=== PATIENT | male | born 1975 | race Two or more races ===

== ENCOUNTER 2017-02-21 19:29 | Emergency (ER) | payer OTHER ==
[2017-02-21 19:55] VITALS: BP 135/79
[2017-02-21] MEDS ORDERED: Aspirin Low Dose CHEW TAB* 81 MG PO ONE (20:28)
[2017-02-21] MEDS ORDERED: Aspirin Low Dose CHEW TAB* 81 MG ONE (20:30)
--- NOTE | 2017-02-21 20:34 | UC ---
Cardiac HPI - HPI Summary HPI Summary: ABOUT A WEEK OF INTERMITTENT MID STERNAL DULL CP, DIZZINESS AND LEFT ARM PAIN. HAS SOME ASSOCIATED SOB. HAS NOT BEEN SLEEPING ENOUGH OVER THE PAST WEEK OR SO DUE TO LONG HOURS AT WORK ([employer]IC) AND DRINKS A LOT OF CAFFEINE. STATES HE MADE SURE TO GET A FULL NIGHTS SLEEP PAST 2 NIGHTS BUT PAIN IS PERSISTENT. HE IS ALSO HAVING INTERMITTENT PALPITATIONS BUT THESE SEEM TO BE RELATED TO NASAL OXYMETAZOLONE USE. PT HAS BEEN USING THIS NASAL SPRAY FOR OVER A YEAR. - History of Current Complaint Chief Complaint: UCChestPain Stated Complaint: CHEST PAIN Time Seen by Provider: 02/21/17 19:54 Hx Obtained From: Patient Onset/Duration: Sudden Onset, Lasting Days Timing: Intermittent Episodes Lasting: Initial Severity: Moderate Current Severity: Moderate Pain Intensity: 7 Chest Pain Location: Mid Sternal Character: Dull/Aching Aggravating Factor(s): Nothing Alleviating Factor(s): Spontaneous Resolution Associated Signs & Symptoms: Positive: Chest Pain, Dizziness, SOB, Palpitations. Negative: Fever, Diaphoresis, Nausea/Vomiting, Cough - Allergy/Home Medications Allergies/Adverse Reactions: Allergies Allergy/AdvReac Type Severity Reaction Status Date / Time No Known Allergies Allergy Verified 02/21/17 19:55 PMH/Surg Hx/FS Hx/Imm Hx Previously Healthy: Yes - Surgical History Surgical History: Yes Surgery Procedure, Year, and Place: ear drum repair 2015 - Family History Known Family History: Negative: Cardiac Disease, Hypertension, Diabetes - Social History Alcohol Use: Occasionally Substance Use Type: None Smoking Status (MU): Former Smoker Amount Used/How Often: 1 cig/ day When Did the Patient Quit Smoking/Using Tobacco: states 2 weeks ago Review of Systems Constitutional: Negative Skin: Negative Respiratory: Shortness Of Breath Cardiovascular: Palpitations, Chest Pain Gastrointestinal: Negative All Other Systems Reviewed And Are Negative: Yes Physical Exam Triage Information Reviewed: Yes Appearance: Well-Appearing, No Pain Distress, Well-Nourished Vital Signs: Initial Vital Signs Temp 99.3 F 02/21/17 19:47 Pulse 91 02/21/17 19:47 Resp 24 02/21/17 19:47 BP 135/79 02/21/17 19:47 Pulse Ox 100 02/21/17 19:47 Vital Signs Reviewed: Yes Eyes: Positive: Conjunctiva Clear ENT: Positive: Hearing grossly normal Neck: Positive: Supple Respiratory Exam: Normal Cardiovascular Exam: Normal Abdomen Description: Positive: Soft Musculoskeletal: Positive: No Edema Neurological: Positive: Alert Psychological: Positive: Normal Response To Family, Age Appropriate Behavior Skin: Negative: rashes Diagnostics - EKG Cardiac Rate: NL - 91 BPM Cardiac Rhythm: Sinus: Normal Ectopy: None - Clinical Impression Provider Diagnoses: CHEST PAIN - Physician Notifications Discussed Patient Care With: Jose Alberto Soliman - TO [facility]BULANCE Time Discussed With Above Provider: 20:29 Instructed by Provider To: MD Will See In ED Discharge - Discharge Plan Condition: Stable Disposition: TRANS HIGHER LVL OF CARE FAC Referrals: No Primary Care Phys,NOPCP [Primary Care Provider] -
== END 2017-02-21 20:00 | disposition short-term general hospital (02) ==
LOC: UCEAST 19:29
DX: R07.9 Chest pain, unspecified (principal); Z87.891 Personal history of nicotine dependence
CPT/HCPCS: 93005; 99203; A9270-GY; G0463

== ENCOUNTER 2017-02-21 21:07 | Observation (INO) | payer OTHER ==
[2017-02-21] MEDS ORDERED: Aspirin Low Dose CHEW TAB* 81 MG PO ONE (21:44)
[2017-02-21 22:01] LABS: Hematocrit 41 % (42-52); Hemoglobin 14.3 g/dl (14.0-18.0); Mean Corpuscular HGB Conc 35 g/dl (31-36); Mean Corpuscular Hemoglobin 34 pg (27-31); Mean Corpuscular Volume 96 fL (80-94); Mean Platelet Volume 7 um3 (7.4-10.4); Red Blood Count 4.26 10^6/ul (4.0-5.4); Red Cell Distribution Width 13 % (10.5-15); White Blood Count 7.8 10^3/ul (3.5-10.8)
[2017-02-21 22:18] LABS: Albumin 4.6 g/dL (3.2-5.2); Calcium 9.4 mg/dL (8.6-10.3); EGFR African American 117.8 (>60); EGFR Non-African American 91.6 (>60); Globulin 2.8 g/dL (2-4); Magnesium 2.1 mg/dL (1.9-2.7); Potassium 3.9 mmol/L (3.5-5.0); Total Bilirubin 0.8 mg/dL (0.2-1.0); Total Protein 7.4 g/dL (6.4-8.9)
[2017-02-21 22:43] LABS: TSH (Thyroid Stimulating Horm) 3.35 mcIU/mL (0.34-5.60)
--- NOTE | 2017-02-22 | ED ---
Radha Rich Rebecca, scribed for Jose Alberto Soliman on 02/21/17 at 2143 . HPI Chest Pain - HPI Summary HPI Summary: Pt is a 41 y/o M BIBA from [facility] who presents to ED c/o CP. Pain has been intermittent for the last 10 days, present tonight from 1914 to 1929 and resolved spontaneously. When present, pain is midsternal with radiation to the LUE and characterized a pressure/burning, though now it is 0/10. Was given ASA at [facility]. Sx aggravated by nothing, alleviated by spontaneous resolution, unchanged by exertion. Additionally c/o SOB, palpitations and intermittent dizziness. Palpitations characterized as fast. Denies N/V. Has never had a stress test. Report she has not been sleeping more than 3 nights for the past few weeks besides the last 2 nights when he got about 7 hours. Has never had a stress test. - History of Current Complaint Chief Complaint: EDDysrhythmPalp Time Seen by Provider: 02/21/17 21:27 Hx Obtained From: Patient Onset/Duration: Started Days Ago - 10 days, Resolved, Worse Since - 1914 tonight Time of Onset: 19:15 Timing: Intermittent Current Severity: None Pain Intensity: 0 Pain Scale Used: 0-10 Numeric Chest Pain Location: Mid Sternal Chest Pain Radiates: Yes Chest Pain Radiates To:: Arm - LUE Character: Burning, Pressure/Squeezing Aggravating Factor(s): Nothing Alleviating Factor(s): Spontaneous Resolution Associated Signs and Symptoms: Positive: Dizziness, Shortness of Breath, Palpitations. Negative: Nausea, Vomiting - Allergy/Home Medications Allergies/Adverse Reactions: Allergies Allergy/AdvReac Type Severity Reaction Status Date / Time No Known Allergies Allergy Verified 02/21/17 19:55 Home Medications: Home Medications Fluticasone NASAL * [Flonase *] 1 spray NASAL DAILY 02/21/17 [History Confirmed 02/21/17] PMH/Surg Hx/FS Hx/Imm Hx Endocrine/Hematology History: Denies: Hx Diabetes Cardiovascular History: Denies: Hx Hypertension EENT History: Reports: Other - Hx chronic sinusitis, deviated septum - Surgical History Surgery Procedure, Year, and Place: ear drum repair 2016 Infectious Disease History: No Infectious Disease History: Reports: Traveled Outside the [place] in [place] - Family History Known Family History: Negative: Cardiac Disease, Hypertension, Diabetes - Social History Occupation: Employed Full-time - [place] Lives: With Family Alcohol Use: Occasionally Substance Use Type: Reports: None Smoking Status (MU): Former Smoker Amount Used/How Often: 1 cig/ day Review of Systems Positive: Palpitations, Chest Pain - resolved Positive: Shortness Of Breath Negative: Vomiting, Nausea Neurological: Other - Dizziness All Other Systems Reviewed And Are Negative: Yes Physical Exam - Summary Physical Exam Summary: Appearance: Well appearing, no pain distress Skin: warm, dry, reflects adequate perfusion Head/face: normal Eyes: EOMI, KAREN ENT: normal Neck: supple, nontender Respiratory: CTA, breath sounds present Cardiovascular: RRR, pulses symmetrical Abdomen: nontender, soft Bowel: present Musculoskeletal: normal, strength/ROM intact Neuro: normal, sensory motor intact, A&Ox3 Triage Information Reviewed: Yes Vital Signs On Initial Exam: Initial Vitals Temp Pulse Resp BP Pulse Ox 97.9 F 81 19 127/82 100 02/21/17 21:20 02/21/17 21:20 02/21/17 21:20 02/21/17 21:20 02/21/17 21:20 Vital Signs Reviewed: Yes Diagnostics - Vital Signs Vital Signs Temp Pulse Resp BP Pulse Ox 02/21/17 21:20 97.9 F 81 19 127/82 100 - Laboratory Result Diagrams: 02/21/17 21:54 02/21/17 21:54 Lab Statement: Any lab studies that have been ordered have been reviewed, and results considered in the medical decision making process. - Radiology CXR Xray Interpretation: No Acute Changes Radiology Interpretation Completed By: ED Physician - EKG 2143 Cardiac Rate: NL EKG Rhythm: Sinus Rhythm EKG Interpretation: Early repolarization Re-Evaluation - Re-Evaluation First Eval Re-Evaluation Time: 23:07 Comment: Discussing results. Chest Pain Course/Dx - Course Assessment/Plan: Pt is a 41 y/o M BIBA from [facility] who presents to ED c/o CP. Pain has been intermittent for the last 10 days, present tonight from 1915 to 1930 and resolved spontaneously. When present, pain is midsternal with radiation to the LUE and characterized a pressure/burning, though now it is 0/ 10. Was given ASA at [facility]. Sx aggravated by nothing, alleviated by spontaneous resolution, unchanged by exertion. Additionally c/o SOB, palpitations and intermittent dizziness. Palpitations characterized as fast. Denies N/V. Has never had a stress test. Report she has not been sleeping more than 3 nights for the past few weeks besides the last 2 nights when he got about 7 hours. Has never had a stress test. CXR reveals no acute changes. EKG is sinus rhythm with early repolarization. Troponin of 0.00. In the ED course, he received ASA. Discussed care of pt with Dr. Vallejo who accepts pt for admission. Pt will be admitted with Dx of chest pain, r/o KS. He understands and agrees. Patient medications reviewed this visit. Elevated BP noted and advised to f/u. - Diagnoses Provider Diagnoses: Chest pain, rule out acute myocardial infarction - Provider Notifications Discussed Care Of Patient With: Khloe Vallejo Time Discussed With Above Provider: 23:23 Instructed by Provider To: Admit As Observation Discharge - Discharge Plan Condition: Stable Disposition: ADMITTED TO [facility] Referrals: No Primary Care Phys,NOPCP [Primary Care Provider] - The documentation as recorded by the Radha winkler Rebecca accurately reflects the service I personally performed and the decisions made by , Jose Alberto Soliman.
[2017-02-22] MEDS ORDERED: Temazepam CAP* 15 MG PO PRN (00:27)
[2017-02-22 00:57] LABS: Benzodiazepine Urine Screen None Detected (None Detect)
--- NOTE | 2017-02-22 04:12 | HP ---
HISTORY AND PHYSICAL: DATE OF ADMISSION: 02/22/17 PRIMARY CARE PROVIDER: None. CHIEF COMPLAINT: Chest pain. HISTORY OF PRESENT ILLNESS: Mr. Melgar is a 41-year-old male with a history significant for recent problems with deviated nasal septum who presents to the hospital complaining of chest pain. 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 He had been working up to 20 hours a day. He stated that he would be working for about 13 hours and then he would come home, have dinner and go back and work again until 3 a.m. every day. In addition to that, he had problems with sleeping due to his deviated septum and breathing when he sleeps. He stated that for the past 10 days, he had approximately 5 episodes of chest pain. They were all noted to be in the left upper precordial area associated with shortness of breath and feeling like a "panic attack." During those episodes, the patient has to come outside and takes several deep breaths and the pain would go away. He describes the pain as pressure radiating to the left axillary once again associated with shortness of breath and feeling of panic attack. The pain was not pleuritic. Today, the pain lasted 15 minutes and it resolved spontaneously. It occurred when the patient was working in front of a computer at all times. The patient also stopped smoking approximately 2 weeks ago. His workup is currently negative with unremarkable EKG and negative troponin. Dr. Soliman of the ER asked me to place the patient on observation to rule out angina. PAST MEDICAL HISTORY: 1. History of deviated septum. 2. History of tympanostomy on the left a year ago. MEDICATIONS: Flonase nasal spray on a p.r.n. basis. ALLERGIES: No known drug allergies. FAMILY HISTORY: No history of heart disease in both parents. 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 He lives with his , who is his surrogate. He denies any alcohol or drug use. He quite smoking 2 weeks ago. REVIEW OF SYSTEMS: Please see history of present illness. Positive for lot of stress, very little sleep and feeling over worked and tired all the time. All the remaining 14 systems were reviewed with the patient and were otherwise negative. PHYSICAL EXAMINATION GENERAL APPEARANCE: The patient is a very pleasant 41-year-old male, who is in no acute distress. Alert, awake and oriented x3. VITAL SIGNS: Blood pressure of 118/72, heart rate of 18 and regular, respiratory rate 16, oxygen saturation 99% on room air, temperature of 97.9. HEENT: Head atraumatic, normocephalic. Eyes: Pupils are equal and reactive to light and accommodation. Oropharynx clear. Mucosa moist. NECK: Supple. No JVD, no bruits bilaterally. RESPIRATORY: Clear to auscultation bilaterally. CARDIOVASCULAR: Regular rate and rhythm. No murmur. ABDOMEN: Soft, nontender. Bowel sounds are present in all 4 quadrants. EXTREMITIES: There is no edema. Pulses are +2 bilaterally. No clubbing or cyanosis. NEUROLOGIC: Speech clear. Cranial nerves II through XII grossly intact. Motor strength is 5/5 bilaterally. SKIN: No ecchymotic areas or rashes noted. LABORATORY DATA: Showed white blood cell count of 7.8, hemoglobin of 14.3, hematocrit of 41, platelets of 310. Sodium was 138, potassium 3.9, chloride 102, carbon dioxide 30, BUN 11, creatinine 0.92. Liver function test is unremarkable. Troponin of 0. TSH of 3.35. The patient's EKG shows normal sinus rhythm with a heart rate of 75 beats per minute with elevated J-point to early repolarization in anteroseptal and inferior leads. Portable chest x-ray reviewed by myself prior to the official Radiology report showed no acute cardiopulmonary disease. ASSESSMENT AND PLAN: 1. In regards to the chest pain, it appears to be anxiety related. Nevertheless, the ED physician recommended for the patient to stay overnight and the patient is going to be staying on telemetry monitored bed to rule out arrhythmia and in the morning. The patient already received aspirin in the emergency department. 2. For DVT prophylaxis, the patient is at low risk. 3. In regards to the patient's history of deviated nasal septum and problems with seasonal allergies, the patient is going to be continued on Flonase. TIME SPENT: Approximately 65 minutes were spent on the admission of this patient, more than half of the time spent [id number] with the patient during the interview and physical exam. [id number]/[facility] #: [id number] MTDD
[2017-02-22 07:46] VITALS: BP 115/59
--- NOTE | 2017-02-22 08:51 | RAD ---
Indication: LEFT side chest pain with radiation to the LEFT arm. Shortness of breath. Tobacco cessation 2 weeks ago. Comparison: No relevant prior exams available on the [facility] PACS for comparison. Technique: Upright AP 2151 hours Report: Clear lungs and pleural spaces. Negative for pneumothorax. The heart, pulmonary vasculature, and mediastinal contours are unremarkable. Unremarkable osseous structures and soft tissue contours. IMPRESSION: No evidence for acute intrathoracic disease.
[2017-02-22] MEDS ORDERED: Fluticasone NASAL SPRAY 50MCG* 16 gm SPRAY BTL NASAL SCH (09:00)
--- NOTE | 2017-02-22 11:13 | PN ---
Hospitalist Progress Note . HOSPITALIST DISCHARGE NOTE: See dc instructions and summary by me. Patient stable for dc dc instructions reviewed with the patient at the bedside. DC patient home today.
--- NOTE | 2017-02-22 16:25 | DS ---
CC: Lucie Nelson D.O.; Dr. Barreto* DISCHARGE SUMMARY: DATE OF ADMISSION: 02/22/17 DATE OF DISCHARGE: 02/22/17 PRIMARY CARE PROVIDER: [facility] - Lucie Nelson D.O. REFERRED TO: Dr. Barreto, [facility] audio recording engineer. PRINCIPAL DISCHARGE DIAGNOSIS: Chest pain, most likely secondary to anxiety, possibly related to nasal decongestant. SECONDARY DIAGNOSES: 1. History of deviated septum with chronic rhinorrhea - on ongoing nasal decongestant/nasal steroids. 2. History of tympanostomy for approximately 1 year previous to this admission without complication. DISCHARGE MEDICATIONS REGIMEN: 1. Flonase 50 mcg per spray, 1 spray each naris p.r.n. basis. 2. Avoid OTC nasal decongestants including pseudoephedrine containing products. HISTORY OF PRESENT ILLNESS AND HOSPITAL COURSE: Please see the H and P by Dr. Khloe Vallejo, on the same date of discharge, 02/22/17. In brief, Mr. Melgar is a 41-year-old gentleman with a history of recent positive deviated nasal septum, who now presented to the hospital with chest pain. 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 He states he was working up to 20 hours a day with 13-hour stretches where he would come home and then go back to work until the middle of the night (3 a.m.). He reported difficulty sleeping secondary to his deviated septum and sleep disordered breathing as a result. He stated that over the past 10 days, he had no fewer than 5 episodes of chest pain all in the left upper precordial area associated with shortness of breath and symptoms consistent with a panic attack. The patient would leave his home and take several deep breaths outside and the pain would resolve. The patient's pressure radiated to his left axilla once and was associated with feelings of shortness of breath and panic. He denied pleuritic symptomatology. The patient was admitted for serial troponins. He had unremarkable EKG and serially negative troponins. The patient was chest pain free when I evaluated him on 02/22/17. The patient is accompanied by his and small child. He is willing to go home and have an outpatient stress test and I think that would be safe considering the entire situation. The patient has no family history or early coronary artery disease and does not have many cardiac risk factors. I am going to add on a lipid panel to his blood chemistry and refer the patient back to Dr. Susanne Barreto for an outpatient stress test. The patient pointed out that his most recent episode of chest pain happened only 2 hours following a dose of phenylephrine containing nasal spray. These agents are known to cause in some patients very elevated blood pressures and this could be a hypertension-related episode. The patient would benefit from a stress test, although he does not need to be observed over the weekend until that time. The patient was given return to ED instructions including for any worsening symptoms, but in particular for chest pain, shortness of breath, lightheadedness , or any other worsening symptoms. Thankfully, his adalberto is now submitted and he can resume a more normal lifestyle and that was encouraged including walking outside and spending time with his family after discharge. TIME SPENT: Total time taken to discharge Mr. Melgar was 45 minutes, greater than half that time spent educating the patient about coronary disease at the bedside and arranging follow up with cardiology team for a stress test. The patient was told to follow up with Dr. Nelson or an Associate at [facility] to maintain continuity of care as he does seek care at [facility] when needed. [id number]/[facility] #: [id number] JUSTIN
== END 2017-02-22 12:00 | disposition home or self-care (01) ==
LOC: ED 21:07 → MEDTELE 02-22 00:26
PROVIDERS: ADMIT Internal Medicine; ATTEND Internal Medicine
DX: R07.9 Chest pain, unspecified (principal); R42 Dizziness and giddiness; R06.02 Shortness of breath; F41.9 Anxiety disorder, unspecified; Z87.891 Personal history of nicotine dependence
CPT/HCPCS: 36415; 71010; 80053; 80307; 83735; 83880; 84443; 84484; 85025; 85610; 85730; 93005; 99284; A9270-GY; G0378

== ENCOUNTER 2017-04-16 08:56 | Day surgery (SDC) | payer OTHER ==
[~2017-04-16 08:56] MED LIST: Buffered Lidocaine 0.9% SYRIN* 5 ML/SYR SYRINGE INTRADERM ONE; Famotidine IV* 10 MG/ML 2 ML (20 mg) IV ONE; Metoclopramide TAB* 10 MG PO ONE
[2017-04-16] MEDS ORDERED: Famotidine IV* 10 MG/ML 2 ML (20 mg) ONE (09:10)
[2017-04-16] MEDS ORDERED: Metoclopramide TAB* 10 MG ONE (09:11)
[2017-04-16] MEDS ORDERED: Buffered Lidocaine 0.9% SYRIN* 5 ML/SYR SYRINGE ONE (09:11)
[2017-04-16] MEDS ORDERED: Propofol* 10 MG/ML 20 ML BTL IV PUSH ONE (11:43)
[2017-04-16] MEDS ORDERED: Dexamethasone IV* 4 MG/ML 1 ML (4 MG) ONE (11:43)
[2017-04-16] MEDS ORDERED: Ondansetron INJ* 2 MG/ML VIAL ONE (11:43)
[2017-04-16] MEDS ORDERED: Lidocaine 2% PF * 5 ML VIAL ONE (11:43)
[2017-04-16] MEDS ORDERED: Midazolam* 1 MG/ML 5 ML VIAL (5 MG) ONE (11:44)
[2017-04-16] MEDS ORDERED: fentaNYL* 50 MCG/ML 2 ML VIAL (100 MCG VIAL) ONE (11:44)
[2017-04-16] MEDS ORDERED: Oxymetazoline 0.05% NASAL SPR* 15 ML BTL ONE (12:06)
[2017-04-16] MEDS ORDERED: Lidocaine 2% EPI 1:200000 MPF* 20 ML VIAL ONE (12:07)
[2017-04-16] MEDS ORDERED: fentaNYL* 50 MCG/ML 2 ML VIAL (100 MCG VIAL) IV PRN (12:48)
[2017-04-16] MEDS ORDERED: Ondansetron INJ* 2 MG/ML VIAL IV PRN (12:48)
[2017-04-16 14:37] VITALS: BP 149/89
--- NOTE | 2017-04-17 05:05 | OP ---
DATE OF OPERATION: 04/16/17 - [facility] DATE OF : 79 SURGEON: Derrell Sabillon MD ANESTHESIOLOGIST: Paul Porter MD ANESTHESIA: General PRE-OP DIAGNOSES: Deviated nasal septum, hypertrophied nasal turbinates, and nasal dyspnea. POST-OP DIAGNOSES: Deviated nasal septum, hypertrophied nasal turbinates, and nasal dyspnea. OPERATIVE PROCEDURE: Septoplasty and submucosal resection of inferior turbinates. 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 We had tried getting him off the oxymetazoline with nasal steroids, but identified him to have a deviated nasal septum with hypertrophied turbinates, which may be improved with surgical management. DESCRIPTION OF PROCEDURE: The patient was taken to the operating room, general anesthesia was given, the patient was intubated with LMA. Nose was decongested with Afrin placed pledgets. Subsequently 2% lidocaine with epinephrine was infiltrated into the mucosa on both sides. A right hemitransfixion incision was created. Mucoperichondrial flap was elevated. Quadrangular cartilage was then disarticulated along the vomer-ethmoidal complex posteriorly along the maxillary crest inferiorly. The portion of the crest was removed along the cartilage to swing. A portion of the cartilage in the inferior portion was removed, upmost the quadrangular cartilage was persevered. Cartilage was then secured in the midline with multiple mattress sutures. Lulú splints were then applied which were used to stabilize the quadrangular cartilage in the midline. We turned our attention to the inferior turbinates. Small incision was made in the inferior turbinate mucosa. Submucosal elevation was carried out, subsequently portions of the inferior turbinate bone was removed. Cauterization of the bony tissue, residual was done so as to obtain hemostasis. Small dressing was applied. The patient was awakened, sent to recovery in stable condition. Instrument and sponge count correct. Blood loss minimal. [id number]/[facility] #: [id number] MTDD
== END 2017-04-16 15:16 | disposition home or self-care (01) ==
LOC: OR 08:56
PROVIDERS: ATTEND Otolaryngology
DX: J34.2 Deviated nasal septum (principal); J34.3 Hypertrophy of nasal turbinates; R06.09 Other forms of dyspnea; J31.0 Chronic rhinitis
CPT/HCPCS: A9270-GY; J1100; J2250; J2405; J2704; J3010

== ENCOUNTER 2018-06-16 09:39 | Emergency (ER) | payer OTHER ==
[2018-06-16 10:01] VITALS: BP 136/80
--- NOTE | 2018-06-16 10:05 | UC ---
General HPI - HPI Summary HPI Summary: 42 yo gentleman c/o 19 days feeling ill. sx started apprx May 31, with sore throat and upper resp congestion. Progressed to sinus congestion / pain / pressure, lower resp congestion. + green mucus from nose and green sputum from cough. No sob perse, but difficultly sleeping b/c cough. and child ( last month) are ok, and he sleeps in different room, wears mask at home. No GI issues. No rash. 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 - History of Current Complaint Chief Complaint: UCRespiratory Stated Complaint: FLU LIKE SYMPTOMS Time Seen by Provider: 06/16/18 09:58 Hx Obtained From: Patient Pain Intensity: 0 - Allergy/Home Medications Allergies/Adverse Reactions: Allergies Allergy/AdvReac Type Severity Reaction Status Date / Time No Known Allergies Allergy Verified 04/09/17 10:37 Home Medications: Home Medications Diphenhydra/Phenyleph/Acetamin [Cold & Flu Relief Multi-S 12.5-5-325 mg/10Ml] 1 liq PO SEE INSTRUCTIONS PRN 06/16/18 [History Confirmed 06/16/18] Phenylephrine/Dm/Acetaminop/GG [Tylenol Cold-Flu Severe Caplet] 2 each PO SEE INSTRUCTIONS PRN 06/16/18 [History Confirmed 06/16/18] PMH/Surg Hx/FS Hx/Imm Hx Previously Healthy: Yes - Surgical History Surgical History: Yes Surgery Procedure, Year, and Place: tympanoplasty 2015. nasel septum - Family History Known Family History: Negative: Cardiac Disease, Hypertension, Diabetes - Social History Alcohol Use: Weekly Alcohol Amount: reports 2 drinks per week Substance Use Type: None Smoking Status (MU): Former Smoker Type: Cigarettes Amount Used/How Often: reports 1 cig per day When Did the Patient Quit Smoking/Using Tobacco: march 2017 - Immunization History Most Recent Tetanus Shot: unsure Review of Systems All Other Systems Reviewed And Are Negative: Yes Constitutional: Positive: Fever, Fatigue Skin: Positive: Negative Eyes: Positive: Drainage, Eye Redness ENT: Positive: Sore Throat, Nasal Discharge, Sinus Congestion, Other - feeling of being underwater (ears) Respiratory: Positive: Cough Cardiovascular: Positive: Negative Gastrointestinal: Positive: Negative Genitourinary: Positive: Negative Motor: Positive: Negative Neurovascular: Positive: Negative Musculoskeletal: Positive: Negative Neurological: Positive: Negative Psychological: Positive: Negative Is Patient Immunocompromised?: No Physical Exam Triage Information Reviewed: Yes Appearance: Well-Nourished - looks tired but nad Vital Signs: Initial Vital Signs Temp 99.8 F 06/16/18 09:53 Pulse 91 06/16/18 09:53 Resp 18 06/16/18 09:53 BP 136/80 06/16/18 09:53 Pulse Ox 98 06/16/18 09:53 Vital Signs Reviewed: Yes Eye Exam: Normal ENT: Positive: Pharynx normal, Nasal congestion, Nasal drainage, TM dull, TM red , Other - sinus tenderness bilat frontal, maxillary Bilat TM dull, mild redness c/w barotrauma (R>L) Neck exam: Normal Neck: Positive: Supple, Nontender, No Lymphadenopathy Respiratory Exam: Other - + rhonchorus cough . Mild exp wheeze upper chest BS equal. No distress. Respiratory: Positive: No respiratory distress, No accessory muscle use Cardiovascular Exam: Normal Cardiovascular: Positive: RRR, No Murmur, Pulses Normal, Brisk Capillary Refill Abdominal Exam: Normal Abdomen Description: Positive: Nontender Musculoskeletal Exam: Normal - moves x 4 ext's, gait steady Neurological Exam: Normal - grossly nonfocal Psychological Exam: Normal - conversing easily and appropriately Skin Exam: Normal - no visible or reported rash. nondiaphoretic. Course/Dx - Course Course Of Treatment: Influenza a/b neg. Reviewed coa / tx plan with Mr. Melgar. Questions as posed answered to the best of my ability. PCP is Dr. Bonner, but has not yet seen him since moving to [place]. He will schedule an appointment. Reviewed minimize decongestant (re bp). - Diagnoses Provider Diagnosis: Sinusitis, Bronchitis Discharge - Sign-Out/Discharge Documenting (check all that apply): Patient Departure All imaging exams completed and their final reports reviewed: No Studies - Discharge Plan Condition: Stable Disposition: HOME Prescriptions: Albuterol HFA INHALER* [Ventolin HFA Inhaler*] 1 - 2 puff INH Q4H PRN #1 mdi PRN Reason: Wheezing Ciprofloxacin TAB* [Cipro 500 MG TAB*] 500 mg PO BID #20 tab guaiFENesin/CODIEN 100MG-10MG* [Robitussin AC 100Mg-10Mg*] 10 ml PO Q6H PRN # 200 ml MDD 40mg PRN Reason: Cough Patient Education Materials: Sinusitis (ED), Acute Bronchitis (ED) Forms: *Work Release Referrals: Albaro Bonner MD [Medical Doctor] - Additional Instructions: Drink plenty of fluids. Please seek medical attention for worse or new problems. Minimize "decongestant" in cold medications, it can increase your blood pressure. Please schedule an appointment to see you primary care physician, in the next couple weeks if possible. - Billing Disposition and Condition Condition: STABLE Disposition: Home
[2018-06-16] MEDS ORDERED: Albuterol HFA INHALER* 8 gm MDI INH ONE (10:35)
== END 2018-06-16 11:38 | disposition home or self-care (01) ==
LOC: UCEAST 09:39
DX: J32.9 Chronic sinusitis, unspecified (principal); J40 Bronchitis, not specified as acute or chronic; Z87.891 Personal history of nicotine dependence
CPT/HCPCS: 99212; A9270-GY; G0463